=== PATIENT | female | born 1960 | race Caucasian/White ===

== ENCOUNTER 2018-08-14 12:35 | Emergency (ER) | payer OTHER ==
--- NOTE | 2018-08-14 15:17 | UC ---
UC General HPI - HPI Summary HPI Summary: 2 DAY HX SORE THROAT, SWELLING R SIDE OF NECK AND R EAR PAIN. + FEVER. SEVERE PAIN WITH SWALLOW BUT NO TROUBLE PASSING SECRETIONS. STATES NOT DRINKING OR EATING DUE TO PAIN. - History of Current Complaint Chief Complaint: UCRespiratory Stated Complaint: THROAT CONCERN Time Seen by Provider: 08/14/18 15:10 Hx Obtained From: Patient Onset/Duration: Gradual Onset Timing: Constant Pain Intensity: 7 Associated Signs & Symptoms: Positive: Fever - Allergy/Home Medications Allergies/Adverse Reactions: Allergies Allergy/AdvReac Type Severity Reaction Status Date / Time ibuprofen Allergy Rash Verified 08/14/18 14:59 Home Medications: Home Medications Cholecalciferol (Vitamin D3) [D 5000] 5,000 unit PO WEEKLY 08/14/18 [History Confirmed 08/14/18] Levothyroxine TAB* [Synthroid TAB*] 100 mcg PO DAILY 08/14/18 [History Confirmed 08/14/18] Magnesium [Magnesium Elemental] 30 mg PO DAILY 08/14/18 [History Confirmed 08/14] Montelukast Sodium TAB* [Singulair TAB*] 10 mg PO BEDTIME 08/14/18 [History Confirmed 08/14/18] Ropinirole TAB* [Requip TAB*] 0.5 mg PO TID 08/14/18 [History Confirmed 08/14/18 ] raNITIdine HCl [Ranitidine HCl] 150 mg PO BID 08/14/18 [History Confirmed ] PMH/Surg Hx/FS Hx/Imm Hx - Additional Past Medical History Additional PMH: RLS, CHRONIC BACK PAIN Endocrine History: Thyroid Disease GI/ History: Gastroesophageal Reflux - Surgical History Surgical History: Yes Surgery Procedure, Year, and Place: L knee replacement, R ACL repair - Family History Known Family History: Positive: Non-Contributory - Social History Alcohol Use: None Substance Use Type: None Smoking Status (MU): Heavy Every Day Tobacco Smoker Type: Cigarettes Amount Used/How Often: 1/2 ppd Length of Time of Smoking/Using Tobacco: since age 18 - Immunization History Vaccination Up to Date: Yes Review of Systems All Other Systems Reviewed And Are Negative: Yes Constitutional: Positive: Fever Skin: Positive: Negative Eyes: Positive: Negative ENT: Positive: Sore Throat Respiratory: Positive: Negative Cardiovascular: Positive: Negative Gastrointestinal: Positive: Negative Genitourinary: Positive: Negative Motor: Positive: Negative Neurovascular: Positive: Negative Musculoskeletal: Positive: Negative Neurological: Positive: Negative Psychological: Positive: Negative Is Patient Immunocompromised?: No Physical Exam Triage Information Reviewed: Yes Appearance: Well-Appearing Vital Signs: Initial Vital Signs Temp 99 F 08/14/18 14:49 Pulse 97 08/14/18 14:49 Resp 18 08/14/18 14:49 BP 123/71 08/14/18 14:49 Pulse Ox 99 08/14/18 14:49 Vital Signs Reviewed: Yes Eyes: Positive: Conjunctiva Clear ENT: Positive: Pharyngeal erythema, TM dull - X2, Tonsillar swelling - R>L, Tonsillar exudate - R>L, Uvula midline. Negative: Nasal congestion, Nasal drainage, Trismus, Muffled voice, Hoarse voice Neck: Positive: Supple, Tenderness @ - R PERITONSILAR NODES THAT IS ENLARGED Respiratory: Positive: Lungs clear, Normal breath sounds Cardiovascular: Positive: RRR, No Murmur Abdomen Description: Positive: Nontender, No Organomegaly, Soft Bowel Sounds: Positive: Present Musculoskeletal: Positive: ROM Intact Neurological: Positive: Alert Psychological: Positive: Age Appropriate Behavior Skin Exam: Normal Diagnostics - Laboratory Diagnostic Studies Completed/Ordered: RAPID STREP OF THROAT IS POSITIVE. Re-Evaluation - Re-Evaluation First Eval Re-Evaluation Time: 17:03 Change: Improved - states able to swallow and is feeling better. Course/Dx - Course Course Of Treatment: Unable to establish IV access after 4 attempts thus will tx IM and po fluids. need for close f/u stressed at time of discharge plus go to ER if not improved by tomorrow or sooner if worse to which pt agrees. - Differential Dx - Multi-Symptom Differential Diagnoses: Other - strep throat, peritonsillar abscess, peritonsillar cellulitis. no uvular shift or muffled voice thus do not feel an abscess. rapid strep was positive. - Diagnoses Provider Diagnosis: Strep throat, Peritonsillar cellulitis Discharge - Sign-Out/Discharge Documenting (check all that apply): Patient Departure All imaging exams completed and their final reports reviewed: No Studies - Discharge Plan Condition: Stable Disposition: HOME Prescriptions: Amoxicillin/Clavulanate 600 [Augmentin Es-600 (NF)] 600 mg PO BID 10 Days #100 ml Patient Education Materials: Tonsillitis (ED), Strep Throat (ED) Referrals: Nishant Zavala MD [Medical Doctor] - Additional Instructions: FOLLOW UP ENT, DR ZAVALA THIS COMING Thursday06/18/19. GO TO THE ER IF NOT IMPROVED BY TOMORROW. GO TO ER IMMEDIATELY FOR ANY WORSENING. - Billing Disposition and Condition Condition: STABLE Disposition: Home
[2018-08-14] MEDS ORDERED: cefTRIAXone VIAL(*) 1,000 MG VIAL IVPB ONE (15:23)
[2018-08-14] MEDS ORDERED: Dexamethasone IV* 4 MG/ML 1 ML (4 MG) IV SLOW PU ONE (15:23)
[2018-08-14] MEDS ORDERED: Dexamethasone IV* 4 MG/ML 1 ML (4 MG) IM ONE (16:04)
[2018-08-14] MEDS ORDERED: cefTRIAXone VIAL(*) 1,000 MG VIAL IM ONE (16:05)
[2018-08-14] MEDS ORDERED: Lidocaine 1% MPF* 2 ML VIAL INJ ONE (16:05)
[2018-08-14] MEDS: Lidocaine 2% VISCOUS* 15 ML UDC PO ONE ×2 (16:34→16:39)
[2018-08-14 17:13] VITALS: BP 132/80
== END 2018-08-14 17:16 | disposition home or self-care (01) ==
LOC: UCCORT 12:35 → MERGE 12:35 → UCCORT 17:16
DX: J02.0 Streptococcal pharyngitis (principal); J36 Peritonsillar abscess; B95.0 Streptococcus, group A, as the cause of diseases classified elsewhere; Z88.6 Allergy status to analgesic agent; E07.9 Disorder of thyroid, unspecified; G25.81 Restless legs syndrome; K21.9 Gastro-esophageal reflux disease without esophagitis; F17.210 Nicotine dependence, cigarettes, uncomplicated
CPT/HCPCS: 87651; 96372; 99202; G0463; J0696; J1100